=== PATIENT | female | born 1950 | race Caucasian/White ===

== ENCOUNTER → 2016-07-03 | Outpatient (CLI) | payer OTHER, BC | LOC: BMCIMAGING 08:55 | PROVIDERS: ATTEND Physician Assistant | DX: Z98.1 Arthrodesis status (principal); M43.12 Spondylolisthesis, cervical region ==

== ENCOUNTER → 2016-11-06 | Outpatient (CLI) | payer OTHER, BC | LOC: BMCIMAGING 07:59 | PROVIDERS: ATTEND Internal Medicine | DX: K76.9 Liver disease, unspecified (principal); N28.1 Cyst of kidney, acquired; K82.4 Cholesterolosis of gallbladder ==

== ENCOUNTER → 2016-11-23 | Outpatient (CLI) | payer OTHER, BC | LOC: FIMAGING 07:59 | PROVIDERS: ATTEND Internal Medicine | DX: Z12.31 Encounter for screening mammogram for malignant neoplasm of breast (principal) | CPT/HCPCS: G0202 ==

== ENCOUNTER → 2017-06-25 | Outpatient (CLI) | payer OTHER, BC | LOC: BMCIMAGING 07:09 | PROVIDERS: ATTEND Internal Medicine | DX: K76.89 Other specified diseases of liver (principal); N28.1 Cyst of kidney, acquired; K82.4 Cholesterolosis of gallbladder ==

== ENCOUNTER → 2017-07-19 | Outpatient (CLI) | payer OTHER, BC | LOC: BHFA 11:30 | PROVIDERS: ATTEND Internal Medicine Cardiovascular Disease | DX: R06.02 Shortness of breath (principal) ==

== ENCOUNTER → 2017-07-20 | Outpatient (CLI) | payer OTHER, BC | LOC: BHFA 13:30 | PROVIDERS: ATTEND Internal Medicine Interventional Cardiology | DX: I25.10 Atherosclerotic heart disease of native coronary artery without angina pectoris (principal); R06.02 Shortness of breath ==

== ENCOUNTER → 2017-09-19 | Outpatient (CLI) | payer OTHER, BC | LOC: FCPNEURO 20:00 | PROVIDERS: ATTEND Psychiatry & Neurology Sleep Medicine | DX: G47.30 Sleep apnea, unspecified (principal) ==

== ENCOUNTER → 2017-12-18 | Outpatient (CLI) | payer OTHER, BC | LOC: FIMAGING 10:52 | PROVIDERS: ATTEND Internal Medicine | DX: Z12.31 Encounter for screening mammogram for malignant neoplasm of breast (principal) ==

== ENCOUNTER → 2018-07-04 | Outpatient (CLI) | payer OTHER, BC | LOC: FIMAGING 09:01 | PROVIDERS: ATTEND Internal Medicine | DX: N63.0 Unspecified lump in unspecified breast (principal) ==

== ENCOUNTER → 2018-07-17 | Outpatient (CLI) | payer OTHER, BC | LOC: BMCIMAGING 07:10 | PROVIDERS: ATTEND Internal Medicine | DX: K76.89 Other specified diseases of liver (principal); K82.4 Cholesterolosis of gallbladder; D17.71 Benign lipomatous neoplasm of kidney ==